=== PATIENT | female | born 1985 | race Caucasian/White ===

== ENCOUNTER 2016-06-03 05:08 | Inpatient (IN) | payer BC, OTHER ==
[~2016-06-03] VITALS: Ht 165.1 cm; Wt 68.2 kg
[~2016-06-03 05:08] MED LIST: PRENTAB26 PO
[2016-06-03 05:33] VITALS: Ht 165.1 cm; Wt 68.2 kg
[2016-06-03] MEDS ORDERED: LACTATED RINGER'S 1000ML 1,000 ML IV SCH (06:01)
[2016-06-03] MEDS ORDERED: LACTATED RINGER'S 1000ML 1,000 ML IV PRN (06:01)
[2016-06-03 06:31] LABS: HEMATOCRIT 36.7 % (37-47); MEAN CELL VOLUME 88.2 fL (80-100); MEAN CORPUSCULAR HEMOGLOBIN 29.8 pg (25-34); MEAN CORPUSCULAR HGB CONC 33.8 g/dl (32-36); MEAN PLATELET VOLUME 10.2 fL (7.4-10.4); PLATELET COUNT 212 K/uL (130-400); RED BLOOD COUNT 4.16 M/uL (4.2-5.4)
[2016-06-03] MEDS ORDERED: OXYTOCIN 30 UNITS/500ML NSS IV ONE (07:41)
[2016-06-03] MEDS ORDERED: NURSING VERBAL MED ORDER ONE (08:15)
[2016-06-03] MEDS ORDERED: CLINDAMYCIN IV 600 MG in DEXTROSE 5% ADD-VANTAGE 50ML 50 ML IV SCH (08:30)
[2016-06-03] MEDS ORDERED: LANOLIN OINT EXT PRN ×2 (09:00)
[2016-06-03] MEDS ORDERED: SUPERCREAM 0.870 % 15GM JAR EXT PRN (09:00)
[2016-06-03] MEDS ORDERED: ACETAMINOPHEN 325 MG TAB PO PRN (09:00)
[2016-06-03] MEDS ORDERED: OXYCODONE/ACETAMINOPHEN 5-325 TAB PO PRN (09:00)
[2016-06-03] MEDS ORDERED: OXYTOCIN 30 UNITS/500ML NSS IV PRN (09:00)
[2016-06-03] MEDS ORDERED: HYDROCORTISONE ACETATE 25 MG SUPP PR PRN (09:00)
[2016-06-03] MEDS ORDERED: BENZOCAINE 20% AER SPR 82.5 GM CAN EXT PRN (09:00)
--- NOTE | 2016-06-03 09:17 | DELIVERY SUMMARY ---
DATE OF OPERATION: 06/03/2016 TIME OF DELIVERY OF BABY: 0758. TIME OF DELIVERY OF PLACENTA: 08. DETAILS OF DELIVERY: The patient was found to be fully dilated and desired to push. She pushed for about 10 minutes and delivered the head without difficulty. Shoulders were delivered with minimum traction. Baby was handed off to the mother where mouth and nose were suctioned. Cord was clamped x2 and cut, it was a 3-vessel cord, and then cord blood was obtained. Perineum and vagina were checked for lacerations. There was a perineal laceration in the posterior fourchette and rectal exam was done and confirmed to be a third degree. Good sphincter tone was noted. The gloves were changed. then external fibers of the sphincter were held with Allis clamps and then these fibers were reapproximated with 2-0 Vicryl with [id number] stitch in end-to-end fashion. Then rectal exam was repeated and no sutures were felt and good sphincter tone noted. Gloves were changed. Vaginal mucosa and perineal muscles were reapproximated with a different 2-0 Vicryl in a running locked fashion, skin in a subcuticular fashion. Good hemostasis was achieved. The rest of the vagina and perineum were intact. Then, placenta was found to be in the vagina, delivered spontaneously, intact and complete. Uterus was explored, found to be empty. Lower segment cleared off all clots and debris. Fundus was firm. EBL was 300. Baby and mother tolerated the procedure well. Sponge, lap, needle and instrument counts were correct x2. Baby was a viable female . Apgars were 9/9. Weight is pending. The patient was given 600 mg of clindamycin during third-degree repair. No complications happened and I was present during the whole procedure. I attest to the content of the Intraoperative Record and any orders documented therein. Any exceptions are noted below. MTDD
[2016-06-03] MEDS: IBUPROFEN 600 MG TAB PO PRN ×2 (09:55→18:21)
[2016-06-03 11:50] VITALS: BP 130/87; PULSE 103; TEMP 36.7
[2016-06-03 15:15] VITALS: BP 102/60; PULSE 56; TEMP 36.8
[2016-06-03] MEDS: DOCUSATE SODIUM 100 MG CAP PO SCH (19:35)
[2016-06-03 20:01] VITALS: BP 115/74; PULSE 88; TEMP 36.7
[2016-06-04 00:10] VITALS: BP 117/76; PULSE 90; TEMP 36.9; O2SAT 97
[2016-06-04 04:30] VITALS: BP 103/66; PULSE 97; TEMP 37; O2SAT 99
[2016-06-04] MEDS: DOCUSATE SODIUM 100 MG CAP PO SCH (07:29)
[2016-06-04 07:30] VITALS: BP 107/72; PULSE 80; TEMP 37
[2016-06-04] MEDS: IBUPROFEN 600 MG TAB PO PRN ×2 (07:30→15:29)
[2016-06-04] MEDS ORDERED: FERROUS SULFATE 325 MG TAB PO SCH (08:00)
[2016-06-04] MEDS ORDERED: PRENATAL VITAMIN TAB PO SCH (08:00)
--- NOTE | 2016-06-04 08:44 | OB/GYN Progress Note ---
[facility] Progress Note Date of Service Jun 04, 2016. Subjective conversation w/ patient, physical exam Ambulation: ambulating normally Voiding: no voiding problems Passing Gas: Yes Diet Tolerance: Regular Diet Lochia: Moderate Feeding Type: Breast Feeding Review of Systems Constitutional: No chills, No fatigue, No fever, No problem reported, No sweats , No weakness, No weight loss Respiratory: No cough, No dyspnea at rest, No dyspnea on exertion, No hemoptysis, No problem reported, No shortness of breath, No sputum, No wheezing Cardiac: No PND, No chest pain, No claudication, No edema, No orthopnea, No palpitations, No problem reported Breast: No breast lump, No breast pain, No change in shape, No nipple discharge , No problem reported, No see HPI Abdomen: No GI bleeding, No constipation, No diarrhea, No nausea, No pain, No problem reported, No vomiting Female : No abnormal vaginal bleeding, No dysuria, No hematuria, No incontinence, No problem reported, No see HPI, No urinary frequency, No vaginal discharge Vd Day #1 pt doing well no complaints anticipate disch tomorrow paperwork done for disch tomorrow Objective Vital Signs Date Time Temp Pulse Resp B/P Pulse Ox O2 Delivery O2 Flow Rate FiO2 06/04/16 07:30 37.0 80 20 107/72 Room Air 06/04/16 07:20 Room Air 06/04/16 04:30 37.0 97 18 103/66 99 Room Air 06/04/16 00:10 97 Room Air 06/04/16 00:10 36.9 90 18 117/76 97 Room Air 06/03/16 20:01 36.7 88 18 115/74 Room Air 06/03/16 15:15 36.8 56 16 102/60 Room Air 06/03/16 15:15 Room Air 06/03/16 11:50 36.7 103 18 130/87 Room Air 06/03/16 11:50 Room Air Laboratory Results Last 24 Hours Test 06/04/16 05:57 Hemoglobin 10.6 g/dL Hematocrit 32.0 %
[2016-06-04] MEDS ORDERED: MTR600X PO (08:45)
--- NOTE | 2016-06-04 08:46 | Discharge Instructions ---
Discharge Instructions Admission Reason for Admission: LABOR Discharge Discharge Diagnosis / Problem: Discharge Goals Goal(s): Routine recovery after delivery Activity Recommendations Activity Limitations: as noted below Lifting Limitations: gradually increase as tolerated Exercise/Sports Limitations: until after follow-up appointment May Resume Sexual Activity: after follow-up appointment Driving or Machine Use: ACTIVITY RECOMMENDATIONS: * Gradual return to full activity over the next 2-3 weeks. * No lifting - nothing heavier than baby over the next 2-3 weeks. * Do not engage in vigorous exercise, sexual activity or sports until cleared by your physician. * Do not drive or operate any motorized equipment until cleared by your physician. * You may shower/bathe daily. BREAST CARE: If you are not breast feeding: * Wear a supportive bra 24 hours a day for one to two weeks. * Avoid stimulating your breasts and nipples as much as possible during the first few weeks after delivery. * When taking a shower, have the warm water hit your back, not breasts. * When your breasts feel full, apply ice packs. Usually three to four times a day helps ease the discomfort. * Take a mild pain medication (Tylenol/Motrin) when you are uncomfortable. If breast feeding: * Use breast milk to lubricate nipples. Lansinoh cream may be used for sore nipples. You do not need to remove cream prior to breast feeding. If using a different brand of cream, check the label for directions regarding removal of cream prior to nursing. * Wear a supportive bra. * If having problems with breasts or breast feeding, call a exchange underwriting consultant or your health care provider. EPISIOTOMY CARE: After delivery, if you have an episiotomy (stitches), the following steps will ease discomfort and aid healing. * For the first 24 hours after delivery, place ice packs next to your episiotomy to help reduce swelling. * After the first 24 hour-period, sitz baths, either portable or in the tub, are suggested. A shower with a shower arm sprayed over the episiotomy may be comforting. * Ingrid care should be done after each voiding and bowel movement. Squirt warm water from a plastic bottle over the perineum (region of the body between the anus and urinary opening) and pat dry. * Use Dermoplast to ease discomfort. Shake container. [place] directly over the episiotomy. * Place a Tucks on a clean sanitary pad next to your episiotomy. OVER THE COUNTER MEDICATION: * For discomfort or pain, you may use Acetaminophen (Tylenol), Ibuprofen (Advil ), or Naproxen (Aleve) following the package directions. * For constipation you may use Colace following the package directions. SPECIAL CARE INSTRUCTIONS: When you are discharged from the hospital, it is important for you to follow the instructions listed below: * During the first week at home, you should be able to care for yourself and your baby. In addition, the usual light household activities are encouraged. * Limit your activities to the way you feel. Do not try to clean the house or move furniture. Be sensible. * If you actively engage in sports and have done so up until the time of your delivery, you may resume these activities as soon as you feel able. This may take up to one month or even longer. Use good judgment. * Continue to take your vitamins for at least six weeks after the of your baby. * Your diet need not be limited unless you were on a special diet before your delivery. Breast-feeding mothers need around 2500 calories per day and at least 64-80 ounces of fluid per day (8 to 10 glasses). * You should eat foods from the four major food groups. Crash diets or fad diets are to be avoided. Eating lean meats, fresh fruits and vegetables, low-fat dairy products, high fiber foods and a regular exercise program, will help you get back to your pre- weight without putting your health at risk. * Constipation is sometimes a problem after delivery. Take a mild laxative as needed. If breast feeding, Milk of Magnesia is acceptable to use. You may use a suppository or Fleets enema if no episiotomy. * A daily shower or tub bath is suggested. Be sure to thoroughly and gently dry the perineum. * A bloody vaginal discharge will usually continue until around four weeks post . A small amount of bleeding may continue for as long as six weeks. Vaginal discharge changes from the bright red bleeding after delivery to pink then brownish and finally yellowish-pink before becoming white and disappearing. * Bleeding may increase with activity. Your first period may come in 4-8 weeks. If you are breast feeding, your period may be delayed even longer. * Vancleave (sex) can begin whenever both you and your partner feel comfortable and do not have any form of genital infection. It is recommended that you wait until after your return appointment and discuss with your physician. If you have questions, please talk to your health care practitioner. A condom should be used to prevent infection and . * Foreplay, gentle intercourse and lubrication is very important the first several times to prevent pain. A water-based lubricant such as K-Y jelly or Astroglide may be used. * Tampons may be used six weeks after delivery. * Douching should be avoided for 6 weeks after delivery. * If you have RH negative blood and your baby is RH positive, you will receive RHOGAM by injection prior to discharge. The nurse will give you a card to keep with you that has the date and place that you received RHOGAM after delivery. * During your care, you had a Rubella screen done to check for the presence of rubella antibodies in your blood. If your test was negative, you will receive a Rubella vaccine prior to discharge. This vaccine may cause a fever, soreness at the injection site and flu-like symptoms. If these symptoms persist, notify your health care practitioner. is not advised for three months after a Rubella vaccine. There is a higher chance of having a baby with defects if conceived within three months of getting the vaccine. * If you were discharged 24 hours from delivery or before 48 hours: Visiting nurses will come to your home 48 hours after discharge to assess you and your baby. The visiting nurse will meet with you while you are in the hospital to arrange a time and get directions to your home. * Verbalizes understanding of car seat law as reviewed with patient nursing. * Car Seat hand-out given and reviewed with patient by nursing. * Shaken baby information reviewed with patient by nursing. Call you doctor if: * Heavy bleeding (saturating several pads an hour) or passing clots the size of your fist. * A fever >101 degrees F (38.3 degrees C) on two occasions four hours apart and/or chills. * Unusual pain in the pelvic or vaginal areas. * "Baby Blues" lasting longer than two weeks. If you have any questions or concerns, call your health care practitioner at . FOLLOW-UP VISIT: * Please call the office at to schedule a 6 week examination. It is important you keep this appointment. * It is important for you to make arrangements for either yearly or twice yearly check-ups thereafter. . Current Hospital Diet Patient's current hospital diet: Regular OB Diet Discharge Diet Recommended Diet: Regular Diet Pending Studies Studies pending at discharge: no Medical Emergencies . Who to Call and When: Medical Emergencies: If at any time you feel your situation is an emergency, please call 911 immediately. . Non-Emergent Contact Non-Emergency issues call your: Specialist Call Non-Emergent contact if: you have a fever, your pain is not controlled, wound has increased drainage . . "Provider Documentation" section prepared by Isidro Hernandez. VTE Core Measure Inpt VTE Proph given/why not?: Treatment not indicated
[2016-06-04] MEDS ORDERED: DIPHTHERIA/TETANUS/PERTUSSIS 0.5 ML SYR/VIAL IM. ONE (09:00)
[2016-06-04] MEDS ORDERED: MEASLES, MUMPS & RUBELLA VIRUS VIAL SQ. ONE (09:00)
[2016-06-04 15:15] VITALS: BP 118/81; PULSE 84; TEMP 36.9
[2016-06-04 15:45] VITALS: O2SAT 99
[2016-06-04 19:32] VITALS: BP_DIAS 81; PULSE 84; TEMP 36.9
[2016-06-04] MEDS ORDERED: BISACODYL 5 MG TABEC PO SCH (20:00)
[2016-06-05] MEDS ORDERED: BISACODYL 10 MG SUPP PR PRN (07:00)
== END 2016-06-04 19:32 | disposition home or self-care (01) | DRG 775 ==
LOC: C.OPB 05:08 → C.LD 05:08 → C.OPB 06:03 → C.OBG 11:47
PROVIDERS: ADMIT Obstetrics & Gynecology; ATTEND Obstetrics & Gynecology
PROC: 10E0XZZ Delivery of Products of Conception, External Approach (ICD-10-PCS; principal; 2016-06-03)
PROC: 0KQM3ZZ Repair Perineum Muscle, Percutaneous Approach (ICD-10-PCS; principal; 2016-06-03)
DX: O70.20 Third degree perineal laceration during delivery, unspecified (principal); Z3A.39 39 weeks gestation of pregnancy; Z37.0 Single live birth

== ENCOUNTER 2016-09-13 22:23 | Emergency (ER) | payer BC, OTHER ==
[~2016-09-13] VITALS: Ht 165.1 cm; Wt 58.9 kg
[~2016-09-13 22:23] MED LIST changes: +MTR600X PO
[2016-09-13 22:30] VITALS: TEMP 36.6; Ht 165.1 cm; Wt 58.9 kg
[2016-09-13] MEDS ORDERED: SODIUM CHLORIDE 0.9% 1000ML 1,000 ML IV STA (23:15)
[2016-09-13 23:49] LABS: HEMATOCRIT 41.1 % (37-47); MEAN CELL VOLUME 86.9 fL (80-100); MEAN CORPUSCULAR HGB CONC 33.3 g/dl (32-36); MEAN PLATELET VOLUME 9.6 fL (7.4-10.4); PLATELET COUNT 229 K/uL (130-400); RED BLOOD COUNT 4.73 M/uL (4.2-5.4); WHITE BLOOD COUNT 6.13 K/uL (4.8-10.8)
[2016-09-13 23:53] LABS: URINE APPEARANCE CLEAR (CLEAR); URINE BILIRUBIN NEG (NEG); URINE COLOR YELLOW; URINE EPITHELIAL CELL AUTO 20-30 /lpf (0-5); URINE NITRITE NEG (NEG); URINE PH 6.5 (4.5-7.5); URINE SPECIFIC GRAVITY 1.007 (1.000-1.030); UROBILINOGEN NEG (NEG)
[2016-09-14 00:06] LABS: MANUAL MICROSCOPIC REQUIRED? NO; REVIEW REQ? NO
[2016-09-14 00:11] LABS: BASO % 0.5 %; BASO ABS # 0.03 K/uL (0-0.2); COMPLETE YES; EOS % 5.1 %; IG% 0.2 %; LYMPH % 52.4 %; LYMPH ABS # 3.21 K/uL (1.2-3.4); MONO % 8.2 %; NEUT % 33.6 %
[2016-09-14 00:12] LABS: ALT/SGPT 35 U/L (12-78); AST/SGOT 19 U/L (15-37); BLOOD UREA NITROGEN 17 mg/dl (7-18); CALCIUM 8.9 mg/dl (8.5-10.1); CARBON DIOXIDE 30 mmol/L (21-32); CHLORIDE 107 mmol/L (98-107); CREATININE 0.78 mg/dl (0.60-1.20); GLUCOSE 94 mg/dl (70-99); POTASSIUM 3.7 mmol/L (3.5-5.1); SODIUM 143 mmol/L (136-145)
[2016-09-14 00:14] LABS: ALKALINE PHOSPHATASE 122 U/L (45-117)
[2016-09-14 00:17] LABS: PREG INTERNAL NEGATIVE QC NEG CLEAR BACKGROUND; PREG INTERNAL POSITIVE QC POS CONTROL LINE
[2016-09-14] MEDS ORDERED: MULT-506 PO (01:48)
--- NOTE | 2016-09-14 02:11 | EMERGENCY ROOM VISIT NOTE ---
ED Visit Note First contact with patient: 23:05 Chief Complaint: Abdominal pain. History of Present Illness: Ms. Saunders is a 30 year-old white female who ambulates into the ED accompanied by her baby child complaining of lower abdominal pain, pain with urination, lower back pain with urination, fatigue and intermittent nausea. Historically patient reports she is 4 para 2 and 3 months. Patient reports a gradual onset of lower abdominal pain that started approximately one month ago. Since that time her pain has been constant but waxing and waning in intensity. This was associated with a full urination, lower back pain. She describes her abdominal pain as a crampy sensation in her back pain as an achy sensation. She rates her current discomfort 3/10. Her pain worsens with urination. She has not identified any other aggravating factors. She has been intermittently using Tylenol with mild relief of her discomfort. Associated she has noted urinary burning and increased urinary frequency. Additionally she reports that she has been having intermittent sensations of chills and nausea but has not had no laya fevers or vomiting. Additionally she does report that when her discomfort escalates she does get lightheaded but has not had a syncopal episode. She does report approximately one week ago she was seen by her [facility] physician who did a pelvic examination and reported everything as "normal", but encouraged the patient to call back in a week's time if the symptoms have not resolved for possible ultrasound of her pelvis and kidneys. Additionally she reports she has been feeling fatigued but does report she has been taking care of 3 children. Patient denies fevers, chills, sweats, skin eruptions, skin color changes, upper respiratory tract symptoms, shortness of breath, chest pain, diarrhea, constipation, rectal bleeding, black/tarry stools, hematuria, vaginal bleeding, vaginal discharge. Review of Systems: As noted above in history of present illness. All body systems were reviewed and found to be negative as noted above. Past Medical History: Ovarian cyst rupture, unspecified bony fracture and unspecified skin disorder. Current Medications: Ibuprofen, vitamins. Allergies to Medications: Bactrim. Social History: Patient is not employed; she feels safe in her home environment ; she denies tobacco and alcohol use. Physical Examination: Vital Signs: Date Time Temp Pulse Resp B/P Pulse Ox O2 Delivery O2 Flow Rate FiO2 09/13/16 22:30 36.6 73 19 125/84 99 GENERAL: 30-year-old female in mild distress due to pain, nontoxic-appearing, afebrile and hemodynamically stable. NEUROLOGICAL: Awake, alert and oriented to person, place and time. Answering questions appropriately and following commands. Normal gait. Good hand eye coordination. SKIN: Warm, dry and pink. No soft tissue eruptions or trauma noted. HEENT: Atraumatic and normocephalic. PERRLA. Sclera white and conjunctiva pink. Oral cavity moist and pink. Pharynx is nonerythematous or edematous. Speech normal. No lymphadenopathy. Trachea midline. No jugular venous distention. BACK: No tenderness over the bony spine. No tenderness throughout the paraspinous muscles. Full range of motion at the waist. No CVA tenderness. THORAX: Lungs sounds are clear to auscultation and equal bilaterally with symmetrical chest wall. No wheezing, rales or rhonchi. No crepitus, tenderness , subcutaneous air or deformities noted. HEART: Regular rate and rhythm. No gallops, rubs or murmurs are appreciated. ABDOMEN: Flat and soft with mild tenderness throughout the lower abdomen. Positive bowel sounds in all quadrants. No guarding, rigidity or organomegaly. EXTREMITIES: Moves all extremities well on command and with purpose. All distal neurovascular statuses are intact and equal bilaterally. ED Course: Patient is assessed as noted above. Laboratory Testing: Test 09/13/16 22:40 09/13/16 23:40 Range/Units Urine Color YELLOW Urine Appearance CLEAR CLEAR Urine pH 6.5 4.5-7.5 Urine Specific [place] 1.007 1.000-1.030 Urine Protein NEG NEG Urine Glucose (UA) NEG NEG Urine Ketones NEG NEG Urine Occult Blood NEG NEG Urine Nitrite NEG NEG Urine Bilirubin NEG NEG Urine Urobilinogen NEG NEG Urine Leukocyte Esterase TRACE NEG Urine WBC (Auto) 1-5 0-5 /hpf Urine RBC (Auto) 0-4 0-4 /hpf Urine Hyaline Casts (Auto) 0 0-5 /lpf Urine Epithelial Cells (Auto) 20-30 0-5 /lpf Urine Bacteria (Auto) NEG NEG White Blood Count 6.13 4.8-10.8 K/uL Red Blood Count 4.73 4.2-5.4 M/uL Hemoglobin 13.7 12.0-16.0 g/dL Hematocrit 41.1 37-47 % Mean Corpuscular Volume 86.9 80-100 fL Mean Corpuscular Hemoglobin 29.0 25-34 pg Mean Corpuscular Hemoglobin Concent 33.3 32-36 g/dl Platelet Count 229 130-400 K/uL Mean Platelet Volume 9.6 7.4-10.4 fL Neutrophils (%) (Auto) 33.6 % Lymphocytes (%) (Auto) 52.4 % Monocytes (%) (Auto) 8.2 % Eosinophils (%) (Auto) 5.1 % Basophils (%) (Auto) 0.5 % Neutrophils # (Auto) 2.07 1.4-6.5 K/uL Lymphocytes # (Auto) 3.21 1.2-3.4 K/uL Monocytes # (Auto) 0.50 0.11-0.59 K/uL Eosinophils # (Auto) 0.31 0-0.5 K/uL Basophils # (Auto) 0.03 0-0.2 K/uL RDW Standard Deviation 43.3 36.4-46.3 fL RDW Coefficient of Variation 13.6 11.5-14.5 % Immature Granulocyte % (Auto) 0.2 % Immature Granulocyte # (Auto) 0.01 0.00-0.02 K/uL Red Blood Cell Morphology Unremarkable Sodium Level 143 136-145 mmol/L Potassium Level 3.7 3.5-5.1 mmol/L Chloride Level 107 98-107 mmol/L Carbon Dioxide Level 30 21-32 mmol/L Anion Gap 6.0 3-11 mmol/L Blood Urea Nitrogen 17 7-18 mg/dl Creatinine 0.78 0.60-1.20 mg/dl Est Creatinine Clear Calc Drug Dose 95.8 ml/min Estimated GFR () 119.1 Estimated GFR (Non- 102.7 BUN/Creatinine Ratio 22.0 10-20 Random Glucose 94 70-99 mg/dl Calcium Level 8.9 8.5-10.1 mg/dl Total Bilirubin 0.2 0.2-1 mg/dl Direct Bilirubin < 0.1 0-0.2 mg/dl Aspartate Amino Transf (AST/SGOT) 19 15-37 U/L Alanine Aminotransferase (ALT/SGPT) 35 12-78 U/L Alkaline Phosphatase 122 45-117 U/L Total Protein 8.2 6.4-8.2 gm/dl Albumin 3.9 3.4-5.0 gm/dl Lipase 215 73-393 U/L Human Chorionic Gonadotropin, Qual NEG NEG Pelvic Ultrasound: Was reviewed by myself and read by the radiologist and showing no endometrial thickening, normal ovarian follicles, suspected nabothian cyst, blood flow seen to the bilateral ovaries, nonspecific focus of increased echogenicity with some increased vascularity in the right ovary less than 1 cm in size and a small amount of pelvic fluid. Renal Ultrasound: Was reviewed by myself and read by the radiologist showing suspected mild right hydronephrosis with ectatic appearing collection system and renal pelvis. Bilateral urethral jets. Normal appearing left kidney. Accidental imaging of the liver shows that it is generous in size measuring approximately 18.6 cm. Patient was hydrated with normal saline; patient was offered pain medications and refused. Patient was reassessed multiple times during her stay in the emergency department. Patient's case was reviewed with Dr. Esteves; we agreed on diagnostic approach, treatment, disposition and plan. Patient was educated about tonight's findings and instructed on her treatment plan; she verbalized understanding and agreement with this plan. Clinical Impression: Pelvic pain. Lower back pain. ENT. Mild hydronephrosis. Decision-Making: Initially my differential diagnosis I considered pelvic inflammatory disease, pyelonephritis, musculoskeletal disorder, dehydration, and other causes. Disposition: Patient discharged home in stable condition accompanied by her ; prior to departure she was reassessed and subjectively reported she was feeling the same. Plan: Patient was encouraged to use acetaminophen as needed for pain every 6 hours. Patient was encouraged to stay well-hydrated. Patient was encouraged to follow-up with her [employer] physician. Patient was encouraged return the ED for worsening symptoms, fevers, or any new/ concerning symptoms.
[2016-09-14 02:15] VITALS: BP 119/87; PULSE 73; O2SAT 98
--- NOTE | 2016-09-14 06:45 | DIAGNOSTIC IMAGING REPORT ---
EXAMINATION: PELVIC ULTRASOUND (transabdominal and endovaginal scanning) CLINICAL HISTORY: Pelvic pain, nausea, vomiting, diarrhea. COMPARISON STUDY: October 2007 FINDINGS: The uterus measured 7.7 x 3 x 5 cm.. The endometrial stripe measured 3 mm. The right ovary measured 34 x 17 x 17 mm. The left ovary measured 32 x 15 x 19 mm. There is no ultrasonographic evidence of ovarian torsion. It should be noted that ovarian torsion can be present with normal Doppler ultrasonographic findings. There is trace free fluid, likely physiologic. IMPRESSION: Minimal free fluid likely physiologic. Otherwise unremarkable pelvic ultrasound. Electronically signed by: Milan Mendes M.D. 09/14/2016 6:43 AM Dictated Date/Time: 09/14/2016 6:41 AM
--- NOTE | 2016-09-14 07:46 | DIAGNOSTIC IMAGING REPORT ---
RENAL ULTRASOUND HISTORY: pelvic, back pain, pain with urination COMPARISON: None. FINDINGS: Right kidney: 11.1 . Mild fullness within the right renal collecting system without laya hydronephrosis. Normal corticomedullary differentiation and cortical thickness. Left kidney: 11.2 No hydronephrosis. Normal corticomedullary differentiation and cortical thickness. Bladder: No bladder wall thickening. The bilateral ureteral jets were identified. Liver is borderline enlarged measuring 18.6 cm in length. IMPRESSION: 1. Mild fullness within the right renal collecting system without laya hydronephrosis. 2. Normal left kidney. Electronically signed by: César Mendes M.D. 09/14/2016 7:44 AM Dictated Date/Time: 09/14/2016 7:41 AM
== END 2016-09-14 02:16 | disposition home or self-care (01) ==
LOC: C.EDB 22:24
DX: R10.2 Pelvic and perineal pain (principal); M54.5 Low back pain; N13.30 Unspecified hydronephrosis

== ENCOUNTER 2017-06-23 12:20 | Emergency (ER) | payer BC, OTHER ==
[~2017-06-23] VITALS: Ht 165.1 cm; Wt 59.8 kg
[~2017-06-23 12:20] MED LIST changes: -MTR600X PO; +MULT-506 PO; -PRENTAB26 PO
[2017-06-23 12:25] VITALS: TEMP 36.5; Ht 165.1 cm; Wt 59.8 kg
--- NOTE | 2017-06-23 13:23 | EMERGENCY ROOM VISIT NOTE ---
History First contact with patient: 13:02 Chief Complaint: ABDOMINAL PAIN Stated Complaint: RIGHT LOWER ABD PAIN/BACK PAIN Nursing Triage Summary: having frequent urination. lower back pain some pelvic pain. went to urgent care no uti not . symptoms have been getting worse for the past week. History of Present Illness The patient is a 31 year old female who presents to the Emergency Room with complaints of lower abdominal pain radiating to her back has been fairly constant for the last week. She describes it as a dull, achy sensation. She has also had urinary frequency. She denies any dysuria, fever or chills. No nausea or vomiting. Bowel movements have been regular. The patient was first seen at urgent care, and sent here for further evaluation. A test and a urinalysis were performed. No abnormalities were noted. She denies any vaginal discharge. She is sexually active with one partner. Review of Systems 10 system review performed and negative unless noted in HPI or below Past Medical/Surgical History Medical Problems: (1) Amniotic fluid leaking Family History Gallbladder disease Social History Smoking Status: Never Smoker Marital Status: Housing Status: lives with family Occupation Status: employed Current/Historical Medications Scheduled Multivitamin (Multivitamin), 1 TAB PO DAILY Physical Exam Vital Signs Date Time Temp Pulse Resp B/P (MAP) Pulse Ox O2 Delivery O2 Flow Rate FiO2 06/23/17 16:19 83 18 110/62 100 06/23/17 14:18 67 18 101/70 100 Room Air 06/23/17 12:25 36.5 64 18 106/78 100 Room Air Physical Exam VITALS: Vitals are noted on the nurse's note and reviewed by myself. Vital signs stable. GENERAL: 31-year-old female, in no acute distress, nondiaphoretic, well- developed well-nourished. SKIN: The skin was without rashes, erythema, edema, or bruising. HEAD: Normocephalic atraumatic. MOUTH: Mucous membranes moist. NECK: Supple without nuchal rigidity. No JVD. HEART: Regular rate and rhythm without murmurs gallops or rubs. LUNGS: Clear to auscultation bilaterally without wheezes, rales or rhonchi. No accessory muscle use. ABDOMEN: Positive bowel sounds x 4.Soft, tenderness to palpation particularly in the right lower quadrant. Slight right-sided CVA tenderness noted. No guarding or rebound tenderness. MUSCULOSKELETAL: No muscle atrophy, erythema, or edema noted. Strength 5/5 throughout. NEURO: Patient was alert and oriented to person place and time. Normal sensation to touch. No focal neurological deficits. Medical Decision & Procedures ER Provider Diagnostic Interpretation: Renal US Patient Name: DELMI PATINO Unit Number: [id number] Dictated: 06/23/171515 Transcribed: 06/23/171515 JRB Printed Date/Time: [~ rep prt dt]/[~ rep prt tm] [~ rep ct labl] - [~ rep ct ivnm] [facility] [place] [address] Dictated: 06/23/171515 Transcribed: 06/23/171515 JRB Printed Date/Time: [~ rep prt dt]/[~ rep prt tm] [~ rep ct labl] - [~ rep ct ivnm] IMPRESSION: 1. Hyperechoic focus within the fundal endometrium measures up to 1.2 cm and may demonstrate minimal internal vascularity. This could be correlated with hysteroscopy to exclude endometrial mass lesion. 2. Mildly complex cystic structure of the right ovary measuring up to 2.7 cm suggests involuting hemorrhagic cyst or less likely a small endometrioma. 3. Mild free pelvic fluid, likely reactive. 4. No evidence of ovarian torsion. The above report was generated using voice recognition software. It may contain grammatical, syntax or spelling errors. Electronically signed by: Randell Lucas M.D. 06/23/2017 3:21 PM Dictated Date/Time: 06/23/2017 3:16 PM The status of this report is Signed. Draft = Not yet reviewed or approved by Radiologist. Signed = Reviewed and approved by Radiologist. <AttendingPhy></AttendingPhy> <FamilyPhy>No Doctor, Assigned</FamilyPhy> < PrimaryPhy>No Doctor, Assigned</PrimaryPhy> <UnitNumber>[id number]</UnitNumber> <VisitNumber>[id number]</VisitNumber> <PatientName>DELMI PATINO</PatientName > <DateOfBirth>1985</DateOfBirth> <Location>[facility]</Location> <ServiceDate> 06/23/17</ServiceDate> <MNE>ESINDI</MNE> <OrderingPhy>Amber Reyna PA-C</ OrderingPhy> <OrderingPhyMNE>f rep ord dr toledo</OrderingPhyMNE> <DictatingPhyMNE> f rep dict dr toledo</DictatingPhyMNE> <CCListMNE>f rep ct mne</CCListMNE> < AdmittingPhyMNE>f pt admit dr toledo</AdmittingPhyMNE> <AttendingPhyMNE>f pt attend dr toledo</AttendingPhyMNE> <ConsultingPhyMNE>f pt consult dr toledo</ConsultingPhyMNE> <FamilyPhyMNE>f pt fam dr toledo</FamilyPhyMNE> <OtherPhyMNE>f pt other dr toledo</OtherPhyMNE> < PrimaryPhyMNE>f pt prim care dr toledo</PrimaryPhyMNE> <ReferringPhyMNE>f pt referring dr toledo</ReferringPhyMNE> Pelvic US Patient Name: DELMI PATINO Unit Number: [id number] Dictated: 06/23/171515 Transcribed: 06/23/171515 JRB Printed Date/Time: [~ rep prt dt]/[~ rep prt tm] [~ rep ct labl] - [~ rep ct ivnm] [facility] [place] [address] Dictated: 06/23/171515 Transcribed: 06/23/171515 JRB Printed Date/Time: [~ rep prt dt]/[~ rep prt tm] [~ rep ct labl] - [~ rep ct ivnm] IMPRESSION: 1. Hyperechoic focus within the fundal endometrium measures up to 1.2 cm and may demonstrate minimal internal vascularity. This could be correlated with hysteroscopy to exclude endometrial mass lesion. 2. Mildly complex cystic structure of the right ovary measuring up to 2.7 cm suggests involuting hemorrhagic cyst or less likely a small endometrioma. 3. Mild free pelvic fluid, likely reactive. 4. No evidence of ovarian torsion. The above report was generated using voice recognition software. It may contain grammatical, syntax or spelling errors. Electronically signed by: Randell Lucas M.D. 06/23/2017 3:21 PM Dictated Date/Time: 06/23/2017 3:16 PM The status of this report is Signed. Draft = Not yet reviewed or approved by Radiologist. Signed = Reviewed and approved by Radiologist. <AttendingPhy></AttendingPhy> <FamilyPhy>No Doctor, Assigned</FamilyPhy> < PrimaryPhy>No Doctor, Assigned</PrimaryPhy> <UnitNumber>[id number]</UnitNumber> <VisitNumber>[id number]</VisitNumber> <PatientName>DELMI PATINO</PatientName > <DateOfBirth>1985</DateOfBirth> <Location>[facility]</Location> <ServiceDate> 06/23/17</ServiceDate> <MNE>ESINDI</MNE> <OrderingPhy>Amber Reyna PA-C</ OrderingPhy> <OrderingPhyMNE>f rep ord dr toledo</OrderingPhyMNE> <DictatingPhyMNE> f rep dict dr toledo</DictatingPhyMNE> <CCListMNE>f rep ct mne</CCListMNE> < AdmittingPhyMNE>f pt admit dr toledo</AdmittingPhyMNE> <AttendingPhyMNE>f pt attend dr toledo</AttendingPhyMNE> <ConsultingPhyMNE>f pt consult dr toledo</ConsultingPhyMNE> <FamilyPhyMNE>f pt fam dr toledo</FamilyPhyMNE> <OtherPhyMNE>f pt other dr toledo</OtherPhyMNE> < PrimaryPhyMNE>f pt prim care dr toledo</PrimaryPhyMNE> <ReferringPhyMNE>f pt referring dr toledo</ReferringPhyMNE> Laboratory Results 06/23/17 12:40 Red Blood Count 4.77, Mean Corpuscular Volume 90.4, Mean Corpuscular Hemoglobin 30.4, Mean Corpuscular Hemoglobin Concent 33.6, Mean Platelet Volume 10.0, Neutrophils (%) (Auto) 43.1, Lymphocytes (%) (Auto) 40.9, Monocytes (%) (Auto) 11.1, Eosinophils (%) (Auto) 4.4, Basophils (%) (Auto) 0.4, Neutrophils # (Auto ) 2.91, Lymphocytes # (Auto) 2.77, Monocytes # (Auto) 0.75, Eosinophils # (Auto ) 0.30, Basophils # (Auto) 0.03 06/23/17 12:40 Test 06/23/17 12:40 06/23/17 12:58 White Blood Count 6.77 K/uL (4.8-10.8) Red Blood Count 4.77 M/uL (4.2-5.4) Hemoglobin 14.5 g/dL (12.0-16.0) Hematocrit 43.1 % (37-47) Mean Corpuscular Volume 90.4 fL (80-100) Mean Corpuscular Hemoglobin 30.4 pg (25-34) Mean Corpuscular Hemoglobin Concent 33.6 g/dl (32-36) Platelet Count 245 K/uL (130-400) Mean Platelet Volume 10.0 fL (7.4-10.4) Neutrophils (%) (Auto) 43.1 % Lymphocytes (%) (Auto) 40.9 % Monocytes (%) (Auto) 11.1 % Eosinophils (%) (Auto) 4.4 % Basophils (%) (Auto) 0.4 % Neutrophils # (Auto) 2.91 K/uL (1.4-6.5) Lymphocytes # (Auto) 2.77 K/uL (1.2-3.4) Monocytes # (Auto) 0.75 K/uL (0.11-0.59) Eosinophils # (Auto) 0.30 K/uL (0-0.5) Basophils # (Auto) 0.03 K/uL (0-0.2) RDW Standard Deviation 42.5 fL (36.4-46.3) RDW Coefficient of Variation 12.9 % (11.5-14.5) Immature Granulocyte % (Auto) 0.1 % Immature Granulocyte # (Auto) 0.01 K/uL (0.00-0.02) Anion Gap 4.0 mmol/L (3-11) Est Creatinine Clear Calc Drug Dose 115.7 ml/min Estimated GFR () 138.8 Estimated GFR (Non- 119.7 BUN/Creatinine Ratio 17.7 (10-20) Calcium Level 8.9 mg/dl (8.5-10.1) Total Bilirubin 0.5 mg/dl (0.2-1) Aspartate Amino Transf (AST/SGOT) 14 U/L (15-37) Alanine Aminotransferase (ALT/SGPT) 22 U/L (12-78) Alkaline Phosphatase 115 U/L (45-117) Total Protein 8.5 gm/dl (6.4-8.2) Albumin 4.1 gm/dl (3.4-5.0) Globulin 4.4 gm/dl (2.5-4.0) Albumin/Globulin Ratio 0.9 (0.9-2) Human Chorionic Gonadotropin, Qual NEG (NEG) Urine Color YELLOW Urine Appearance CLEAR (CLEAR) Urine pH 7.0 (4.5-7.5) Urine Specific [place] 1.013 (1.000-1.030) Urine Protein NEG (NEG) Urine Glucose (UA) NEG (NEG) Urine Ketones NEG (NEG) Urine Occult Blood NEG (NEG) Urine Nitrite NEG (NEG) Urine Bilirubin NEG (NEG) Urine Urobilinogen NEG (NEG) Urine Leukocyte Esterase TRACE (NEG) Urine WBC (Auto) 1-5 /hpf (0-5) Urine RBC (Auto) 0-4 /hpf (0-4) Urine Hyaline Casts (Auto) 1-5 /lpf (0-5) Urine Epithelial Cells (Auto) >30 /lpf (0-5) Urine Bacteria (Auto) NEG (NEG) ED Course Patient was seen and examined Vital signs including blood pressure were reviewed medications list was verified with patient Labs were obtained, and a saline lock was established The patient declined pain medication Imaging was performed and reviewed Upon reassessment, the patient was resting comfortably. We discussed the results of her workup. She voiced understanding. I reviewed discharge instructions the patient. They voiced understanding and had no further questions. Medical Decision Differential diagnosis: Ectopic , ovarian cyst, UTI, pyelonephritis, kidney stone, diverticulitis Patient is a 31-year-old female that presents to the emergency department complaining of right lower abdominal pain radiating to her back for 1 week. Associated symptoms include urinary frequency. On exam, the patient had some tenderness in the right lower quadrant. She was nontoxic in appearance. Her workup reveals no leukocytosis. Her ultrasound was consistent with a right sided ovarian cyst. No signs of torsion. This is likely the source of her pain. There was also a small mass noted in the endometrium. The patient was informed of this, and I urged her to follow-up with her IT HELP DESK ANALYST doctor. She voiced understanding, was comfortable being discharged home. She declined pain medication. She will return to the emergency department with any new, worsening or concerning symptoms. This chart was completed in part utilizing zee[employer] Speech Voice Recognition software. Attempts were made to minimize the grammatical errors, random word insertions, pronoun errors and incomplete sentences. Any formal questions or concerns about the content, text or information contained within the body of this dictation should be directly addressed to the provider for clarification. Impression Primary Impression: Right ovarian cyst Departure Information Dispostion Home / Self-Care Condition GOOD Referrals No Doctor, Assigned (PCP) Patient Instructions ED Cyst Ovarian, [facility] Additional Instructions You have been evaluated in the emergency department for abdominal pain. This is likely due to a right-sided ovarian cyst. There was also a small mass found in the uterus. It is very important to follow up with your IT HELP DESK ANALYST doctor. Please call first thing Monday morning for a follow-up appointment. Ibuprofen 800 mg and/or Tylenol 1000 mg every 8 hours as needed for pain You may also alternate these medications for more effective pain relief: Ibuprofen --4 HRS--> Tylenol --4 HRS--> ibuprofen --4 HRS--> Tylenol .... Please do not hesitate to return to the emergency department with any new, worsening or concerning symptoms
[2017-06-23 13:40] LABS: BASO % 0.4 %; BASO ABS # 0.03 K/uL (0-0.2); EOS % 4.4 %; HEMATOCRIT 43.1 % (37-47); HEMOGLOBIN 14.5 g/dL (12.0-16.0); IG# 0.01 K/uL (0.00-0.02); LYMPH % 40.9 %; LYMPH ABS # 2.77 K/uL (1.2-3.4); MEAN CELL VOLUME 90.4 fL (80-100); MEAN CORPUSCULAR HEMOGLOBIN 30.4 pg (25-34); MEAN CORPUSCULAR HGB CONC 33.6 g/dl (32-36); MONO % 11.1 %; MONO ABS # 0.75 K/uL (0.11-0.59); NEUT % 43.1 %; NEUT ABS # 2.91 K/uL (1.4-6.5); PLATELET COUNT 245 K/uL (130-400); RED CELL DISTRIBUTION WIDTH CV 12.9 % (11.5-14.5); RED CELL DISTRIBUTION WIDTH SD 42.5 fL (36.4-46.3); WHITE BLOOD COUNT 6.77 K/uL (4.8-10.8)
[2017-06-23 13:48] LABS: ALBUMIN 4.1 gm/dl (3.4-5.0); CALCIUM 8.9 mg/dl (8.5-10.1); CREATININE 0.64 mg/dl (0.60-1.20); POTASSIUM 3.8 mmol/L (3.5-5.1)
[2017-06-23 13:51] LABS: TOTAL PROTEIN 8.5 gm/dl (6.4-8.2)
--- NOTE | 2017-06-23 15:19 | DIAGNOSTIC IMAGING REPORT ---
ULTRASOUND KIDNEYS AND BLADDER CLINICAL HISTORY: Right flank pain. COMPARISON STUDY: Renal ultrasound dated 09/14/2016. TECHNIQUE: Real-time, grayscale, and color flow sonography of the kidneys and bladder is performed. Images are reviewed in the transverse and longitudinal planes. FINDINGS: Kidneys: The kidneys are normal in size and echotexture. The right kidney measures 10.3 cm in length and the left kidney measures 10.6 cm in length. There is no hydronephrosis. No shadowing renal calculi are identified. There is no sonographic evidence of contour deforming renal mass lesion. No perinephric fluid is identified. Bladder: The bladder is partially decompressed and grossly normal in appearance. Ureteral jets were not seen. IMPRESSION: 1. The kidneys are normal in size and without hydronephrosis. 2. The bladder was partially decompressed and grossly unremarkable. Electronically signed by: Maxwell Perdomo M.D. 06/23/2017 3:17 PM Dictated Date/Time: 06/23/2017 3:16 PM
--- NOTE | 2017-06-23 15:22 | DIAGNOSTIC IMAGING REPORT ---
TRANSVAG-FEMALE PELVIS HISTORY: 31 years-old Female ? cyst RLQ pain radiating to back acute right lower quadrant abdominal pain COMPARISON: Pelvic ultrasound 09/14/2016 TECHNIQUE: Multiple real-time sonogram images of the deep pelvic structures were obtained transabdominally and transvaginally assessing grayscale appearance, color and spectral flow FINDINGS: TRANSABDOMINAL: Anteflexed uterus measures 8.3 x 4.6 x 6.0 cm. Endometrium measures 1.1 cm. Urinary bladder appears partially collapsed. There is a cystic lesion within the right ovary. Mildly complex measuring 2.7 x 2.6 x 2.0 cm. Arterial inflow to the right ovary is confirmed. TRANSVAGINAL: Hyperechoic focus with ill-defined margins seen involving the endometrium near the uterine fundus nicely seen on image 21 which measures 1.2 x 0.6 cm with possible internal flow. Endometrium measures approximately 7 mm in thickness. Mild free pelvic fluid. Right ovary measures 3.5 x 3.6 x 2.6 cm and demonstrates arterial inflow. Thick-walled cystic structure of the right ovary measures up to 2.7 x 2.0 x 2.6 cm demonstrating mild complexity with internal low-level echoes. Left ovary measures 3.4 x 2.3 x 2.4 cm and is unremarkable with arterial inflow documented. No left adnexal mass lesions. IMPRESSION: 1. Hyperechoic focus within the fundal endometrium measures up to 1.2 cm and may demonstrate minimal internal vascularity. This could be correlated with hysteroscopy to exclude endometrial mass lesion. 2. Mildly complex cystic structure of the right ovary measuring up to 2.7 cm suggests involuting hemorrhagic cyst or less likely a small endometrioma. 3. Mild free pelvic fluid, likely reactive. 4. No evidence of ovarian torsion. The above report was generated using voice recognition software. It may contain grammatical, syntax or spelling errors. Electronically signed by: Randell Lucas M.D. 06/23/2017 3:21 PM Dictated Date/Time: 06/23/2017 3:16 PM
[2017-06-23 16:19] VITALS: BP 110/62; PULSE 83; O2SAT 100
== END 2017-06-23 16:20 | disposition home or self-care (01) ==
LOC: C.EDB 12:21 → C.EDA 16:20
DX: N83.201 Unspecified ovarian cyst, right side (principal)

== ENCOUNTER 2021-01-31 03:54 | Inpatient (IN) ==
[2021-01-31] MEDS ORDERED: LACTATED RINGER'S 1,000 ML IV PRN (04:13)
[2021-01-31] MEDS ORDERED: OXYTOCIN 30 UNITS/500 ML BAG IV PRN ×2 (04:13→07:06)
--- NOTE | 2021-01-31 04:22 | History & Physical Report ---
Date of Service January 31, 2021 Assessment & Plan (1) : History of Present Illness Chief Complaint: 38 weeks in labor Primary Care Provider: Lacy Goode MD 35 F [id number] at 38 weeks admitted in labor. Allergies Allergy/AdvReac Type Severity Reaction Status Date / Time Bactrim Allergy Severe GI SYMPTOMS Verified 12/06/17 08:15 latex Allergy Mild ITCHING Verified 01/17/20 08:49 WITH CONDOMS sulfamethoxazole AdvReac Severe GI SYMPTOMS Verified 01/17/20 08:49 trimethoprim AdvReac Severe GI SYMPTOMS Verified 01/17/20 08:49 Home Medications Medication Instructions Recorded Confirmed Type Bifidobacterium infantis 10.5 mg 10.5 mg PO QAM 01/08/20 01/17/20 History (10 million cell) chewable tablet (Align) cholecalciferol (vitamin D3) 125 5,000 units PO QAM 01/08/20 01/17/20 History mcg (5,000 unit) tablet lactobacillus combination no.4 3 3,000 mmu cells PO QAM 01/08/20 01/17/20 History billion cell capsule (Probiotic) multivitamin 1 tab PO QAM 01/08/20 01/17/20 History naproxen sodium 220 mg capsule 220 mg PO BID PRN 01/08/20 01/17/20 History (Aleve) cetirizine 10 mg tablet (Zyrtec) 10 mg PO DAILY PRN 01/17/20 01/17/20 History Patient History Medical History Fatigue Headache labor with 2014 , but delivered at term Seasonal allergies Spontaneous 04/2008 UTI (urinary tract infection) TAKING ORAL ANTIBIOTICS CURRENTLY Vitamin D deficiency Surgical History History of foot surgery 12/2003 left foot fifth toe S/P foot surgery, right 2012 S/P wisdom tooth extraction Family History Mother Migraine Denies family history of Colon cancer Ovarian cancer Prostate cancer Myocardial infarction Breast cancer Social History Smoking Status: Never smoker Second Hand Exposure: No; Hx Alcohol Use: Yes Alcohol type: beer, wine and hard liquor Hx Substance Use: No Preferred Language: Urdu Communication Ability: Effective 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: No Beliefs That Will Affect Care: None marital status: Current Living Situation: Spouse and Family current occupational status: employed current occupation: [employer] Feels Safe at Home: Yes Dental Care, Regularly: Yes Physical Activity Frequency: 3-4 Times per Week Assistive Devices: Glasses OB History x4 RN EMERGENCY ROOM History uncomplicated Review of Systems All systems reviewed & are unremarkable except as noted in HPI & below Physical Exam Constitutional: WD/WN, vitals as above Eyes: PERRL, conjunctivae normal, anicteric sclerae Respiratory: normal respiratory effort, lungs clear to auscultation Cardiovascular: RRR, no murmur, no edema Skin: no rashes, warm and dry Neurologic: patellar DTR's 2+ bilat, sensation intact Psychiatric: A+Ox3, euthymic affect Genitourinary: OB Exam Abdomen: + vertex Manual OB Exam: + cervical dilation 5 cm and 6 cm, + cervical effacement 100% and + station -1 GBS is negative Results & Data ([facility]) Vital Signs (Past 12 Hours) Vital Signs Pulse BP 01/31/21 04:10 93 H 124/84 Code Status & VTE Plan VTE Prophylaxis Plan VTE Prophylaxis will be ordered: No Monitoring External Monitor Cat 1
[2021-01-31 04:42] LABS: Hematocrit (blood only) 37.7 % (37-47); Hemoglobin 12.8 g/dL (12.0-16.0); Mean Corpuscular Hemoglobin 30.7 pg (25-34); Mean Corpuscular Volume 90.4 fL (80-100); Mean Platelet Volume 10.1 fL (7.4-10.4); Platelet Count 230 K/uL (130-400); RDW Coefficient of Variation 13.6 % (11.5-14.5); RDW Standard Deviation 44.7 fL (36.4-46.3); Red Blood Count 4.17 M/uL (4.2-5.4); White Blood Count 8.89 K/uL (4.8-10.8)
--- NOTE | 2021-01-31 05:47 | Labor Progress Brief Note ---
Date of Service January 31, 2021 Assessment & Plan Admission and Anticipated Discharge Date Admission Date: January 31, 2021 Physical Exam Genitourinary: Manual OB Exam: + cervical dilation 8 cm, + cervical effacement 100%, + station 0 and + amniotic fluid clear OB Exam Monitor Tracing: + external FHT monitor used, + external uterine monitor used, + category I and + normal FHT variability AROM with Amni-hook clear fluid Results & Data ([facility]) Vital Signs (Past 12 Hours) Vital Signs Temp Pulse Resp BP 01/31/21 04:47 36.7 C 93 H 16 124/84 01/31/21 04:10 36.7 C 93 H 16 [id number]
--- NOTE | 2021-01-31 06:50 | Delivery Summary ---
Vaginal Delivery Summary Date of Service January 31, 2021 Vaginal Delivery Summary live female over intact perineum NICO with delayed cord clamping and Apgars and weight pending. Cord blood obtained followed by spontaneous delivery of intact placenta. No tears. EBL 100 ml. Final sponge and instrument count are correct. Mom and baby stable.
[2021-01-31] MEDS ORDERED: BENZOCAINE 20% AER SPR 82.5 GM CAN EXT PRN (07:06)
[2021-01-31] MEDS ORDERED: bisacodyL 10 MG SUPP PR PRN (07:06)
[2021-01-31] MEDS ORDERED: DIPHTHERIA/TETANUS/PERTUSSIS 0.5 ML SYR/VIAL IM ONE (07:06)
[2021-01-31] MEDS ORDERED: CETIRIZINE HCL 10 MG TABLET PO PRN (07:06)
[2021-01-31] MEDS ORDERED: HYDROCORTISONE ACETATE 25 MG SUPP PR PRN (07:06)
[2021-01-31] MEDS ORDERED: SUPERCREAM 0.870% 15 GM JAR EXT PRN (07:06)
[2021-01-31] MEDS ORDERED: ACETAMINOPHEN 325 MG TAB PO PRN (07:06)
[2021-01-31] MEDS: DOCUSATE SODIUM 100 MG CAP PO SCH ×2 (08:54→20:40)
[2021-01-31] MEDS: CHOLECALCIFEROL 1,000 UNITS 25 MCG TAB PO SCH (08:54)
[2021-01-31] MEDS: PRENATAL VITAMIN 1 TAB PO SCH (08:54)
[2021-01-31] MEDS: ADVANCED PROBIOTIC 1250 MG CAPSULE PO SCH (08:54)
[2021-01-31] MEDS: FERROUS SULFATE 325 MG TAB PO SCH (08:55)
[2021-01-31] MEDS ORDERED: BIFIDOBACTERIUM INFANTIS 10.5 MG PO SCH (09:00)
[2021-01-31] MEDS ORDERED: MULTIVITAMIN TAB PO SCH (09:00)
[2021-01-31] MEDS: IBUPROFEN 600 MG TAB PO PRN ×2 (12:21→20:40)
[2021-02-01] MEDS: IBUPROFEN 600 MG TAB PO PRN (04:16)
[2021-02-01 06:45] LABS: Hemoglobin 11.6 g/dL (12.0-16.0); Mean Corpuscular Hemoglobin 29.8 pg (25-34); Mean Corpuscular Hgb Conc 33.1 g/dL (32-36); Mean Platelet Volume 10.1 fL (7.4-10.4); Platelet Count 167 K/uL (130-400); RDW Coefficient of Variation 13.6 % (11.5-14.5); RDW Standard Deviation 44.6 fL (36.4-46.3); Red Blood Count 3.89 M/uL (4.2-5.4); White Blood Count 9.32 K/uL (4.8-10.8)
[2021-02-01] MEDS: DOCUSATE SODIUM 100 MG CAP PO SCH (08:17)
[2021-02-01] MEDS: PRENATAL VITAMIN 1 TAB PO SCH (08:17)
[2021-02-01] MEDS: FERROUS SULFATE 325 MG TAB PO SCH (08:17)
[2021-02-01] MEDS: CHOLECALCIFEROL 1,000 UNITS 25 MCG TAB PO SCH (08:19)
[2021-02-01] MEDS: ADVANCED PROBIOTIC 1250 MG CAPSULE PO SCH (08:21)
--- NOTE | 2021-02-01 09:02 | Obstetrical Progress Note ---
Date of Service February 01, 2021 Assessment & Plan Admission and Anticipated Discharge Date Admission Date: January 31, 2021 Subjective Patient is seen and examined. She feels well, no complaints. Desires d/c today. Ambulating without dizziness Voiding without difficulty Tolerating regular diet with out N&V Bleeding is minimal No fever/ chills/ CP/ SOB/ N&V/ Leg pain Breast feeding without problems Vital Signs Temp Pulse Resp BP Pulse Ox 02/01/21 08:05 36.5 C 65 20 108/72 98 02/01/21 04:00 36.5 C 68 16 105/70 97 02/01/21 00:35 36.6 C 84 16 104/69 96 Lab Results 01/31/21 01/31/21 01/31/21 Range/Units 04:21 04:21 04:30 WBC 8.89 (4.8-10.8) K/uL RBC 4.17 L (4.2-5.4) M/uL Hgb 12.8 (12.0-16.0) g/dL Hct 37.7 (37-47) % MCV 90.4 (80-100) fL MCH 30.7 (25-34) pg MCHC 34.0 (32-36) g/dL RDW Std Deviation 44.7 (36.4-46.3) fL RDW Coeff of Howard 13.6 (11.5-14.5) % Plt Count 230 (130-400) K/uL MPV 10.1 (7.4-10.4) fL COVID-19 Eval Order Covid19 [facility]Now [facility] SARS-CoV-2, RNA, NAAT NEGATIVE (NEGATIVE) 02/01/21 Range/Units 06:35 WBC 9.32 (4.8-10.8) K/uL RBC 3.89 L (4.2-5.4) M/uL Hgb 11.6 L (12.0-16.0) g/dL Hct 35.0 L (37-47) % MCV 90.0 (80-100) fL MCH 29.8 (25-34) pg MCHC 33.1 (32-36) g/dL RDW Std Deviation 44.6 (36.4-46.3) fL RDW Coeff of Howard 13.6 (11.5-14.5) % Plt Count 167 (130-400) K/uL MPV 10.1 (7.4-10.4) fL COVID-19 Eval Order SARS-CoV-2, RNA, NAAT (NEGATIVE) PE: General: Alert, orientedx3, NAD Abd: soft, NT, fundus firm, below Umbilicus Perineum intact, Lochia rubra minimal Ext; NT, no edema AP: 35 yo s/p , ppd# 1 VSS Afebrile doing well Continue routine care All questions were answered Discussed when to call D/C home , f/u in office Results & Data ([facility]) Vital Signs (Past 12 Hours) Vital Signs Temp Pulse Resp BP Pulse Ox 02/01/21 08:05 36.5 C 65 20 108/72 98 02/01/21 04:00 36.5 C 68 16 105/70 97 02/01/21 00:35 36.6 C 84 16 104/69 96
[2021-02-01] MEDS ORDERED: bisacodyL 5 MG TABEC PO SCH (20:00)
== END 2021-02-01 14:15 | disposition home or self-care (01) | DRG 807 ==
LOC: OPB 03:54 → 4S1 03:56 → 4S2 10:32

== ENCOUNTER 2024-05-20 18:08 | Inpatient (IN) ==
--- NOTE | 2024-05-20 19:19 | History & Physical Report ---
Date of Service May 20, 2024 Assessment & Plan (1) Ruptured membranes, prolonged: Plan: Labor induction. IV antibiotics. History of Present Illness Chief Complaint: Intrauterine 39 weeks 4 days gestation. Leakage of amniotic fluid. Primary Care Provider: Lacy Goode MD Patient is a 39-year-old 1 para 0 she is in good general health. has been well dated with a first trimester ultrasound. Her due date is 05/23/2024. Ultrasound showed an extra placental lobe. She has had over 24 hours of leakage of fluid. She was uncertain if this was amniotic fluid. She came in today and was nitrazine and AmniSure positive. She also has positive beta strep. She was placed on IV Pitocin. Given oral p.o. Cytotec. Allergies Allergy/AdvReac Type Severity Reaction Status Date / Time Bactrim Allergy Severe GI SYMPTOMS Verified 12/06/17 08:15 latex Allergy Mild ITCHING Verified 05/13/24 02:52 WITH CONDOMS whey Allergy Gastrointestinal Verified 05/13/24 02:52 Upset sulfamethoxazole AdvReac Severe GI SYMPTOMS Verified 05/13/24 02:52 trimethoprim AdvReac Severe GI SYMPTOMS Verified 05/13/24 02:52 Home Medications Medication Instructions Recorded Confirmed Type vits no.124-ferrous fum 1 tab PO DAILY 05/13/24 05/20/24 History 27 mg iron-folic acid 800 mcg tablet ( Vitamin) cetirizine 10 mg capsule (Zyrtec) 10 mg PO DAILY PRN Runny Nose 05/20/24 05/20/24 History Past Med/Surg History Problem List (Updated 05/20/24 @ 19:19 by Moo Dobbs MD) Ruptured membranes, prolonged False labor after 37 completed weeks of gestation Irregular uterine contractions Dermatitis, contact Constipation Abdominal pain Diarrhea Seasonal allergies Encounter for pre-operative examination Vitamin D deficiency Medical History (Updated 05/20/24 @ 19:19 by Moo Dobbs MD) UTI (urinary tract infection) Fatigue Headache Spontaneous 04/2008 labor with 2014 , but delivered at term Surgical History History of hysteroscopy 2019 for polyp removal S/P foot surgery, right 2012 S/P wisdom tooth extraction History of foot surgery 12/2003 left foot fifth toe Family History Mother Migraine Denies family history of Colon cancer Ovarian cancer Prostate cancer Myocardial infarction Breast cancer Social History (Updated 05/20/24 @ 18:20 by Ledy Ackerman, RN) Smoking Status: Never smoker Second Hand Exposure: No; Do You Dip or Chew Tobacco: No; Hx Alcohol Use: No Hx Substance Use: No Preferred Language: Cameroonian Communication Ability: Effective Visual Impairment: No Limitations Hearing Ability: Normal 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 Beliefs That Will Affect Care: None marital status: Current Living Situation: Spouse and Family Current Living Situation Comment: and 5 daughters current occupational status: unemployed 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 Heart had regular rhythm S1 and S2 are normal. Lungs are clear to auscultation and percussion. Trachea was midline there was no cervical adenopathy. Abdomen was consistent with a term size fetus. There was no palpable abdominal tenderness. Pelvic exam revealed the cervix to be posterior 1 cm dilated firm 80% effaced about a -1 station. Results & Data Results & Data Vital Signs (Past 12 Hours) Vital Signs Temp Pulse Resp BP 05/20/24 18:29 36.9 C 20 05/20/24 18:22 94 H 118/75 Diagnostic Findings Amnio sure positive for rupture of membranes Medications Administered Cytotec p.o. 50 mcg. Penicillin IV.
[2024-05-20] MEDS ORDERED: OXYTOCIN 30 UNITS/NSS 30 UNITS/500 ML BAG IV PRN (21:28)
[2024-05-20] MEDS ORDERED: LIDOCAINE 1% LOCAL 20 ML VIAL INFIL PRN (21:28)
[2024-05-20] MEDS: SODIUM CHLORIDE 0.9% 1,000 ML IV SCH (21:30)
[2024-05-20 21:54] LABS: Hematocrit (blood only) 35.1 % (37.0-47.0); Hemoglobin 11.8 g/dl (12.0-16.0); Mean Corpuscular Hemoglobin 28.9 pg (25.0-34.0); Mean Corpuscular Hgb Conc 33.6 g/dL (32.0-36.0); Mean Platelet Volume 10.3 fL (9.4-12.4); Platelet Count 220 K/uL (130-400); RDW Coefficient of Variation 13.2 % (11.5-14.5); RDW Standard Deviation 41.4 fL (36.4-46.3); Red Blood Count 4.08 M/uL (4.20-5.40)
[2024-05-20] MEDS ORDERED: ACETAMINOPHEN 325 MG TAB PO PRN (22:55)
[2024-05-20] MEDS: ACETAMINOPHEN 325 MG TAB ONE (23:18)
[2024-05-20] MEDS: fentANYL 2 MCG/ML BUPIVacaine 0.125%-NSS 100ML BAG ONE (23:42)
[2024-05-20] MEDS: SODIUM CHLORIDE 0.9% PF INJ 10 ML VIAL ONE (23:49)
[2024-05-20] MEDS: BUPIVACAINE 0.25% PF 30 ML VIAL ONE (23:49)
[2024-05-20] MEDS: LIDOCAINE 2%/EPINEPHRINE 1:200,000 20 ML PF ONE (23:49)
[2024-05-20] MEDS ORDERED: NALOXONE HCL 1 MG in SODIUM CHLORIDE 0.9% 1,000 ML IV PRN (23:51)
[2024-05-20] MEDS ORDERED: NALOXONE HCL 0.4 MG/1 ML VIAL/CARP IV PRN (23:51)
[2024-05-20] MEDS ORDERED: PROMETHAZINE 6.25 MG/50.25 ML BAG IV PRN (23:51)
[2024-05-20] MEDS ORDERED: fentANYL 2 MCG/ML BUPIVacaine 0.125%-NSS 100ML BAG EPI PRN (23:51)
[2024-05-20] MEDS ORDERED: ePHEDrine sulfate 50 MG/ML AMP IV PRN (23:51)
[2024-05-20] MEDS ORDERED: SODIUM CHLORIDE 0.9% PF INJ 10 ML VIAL EPI PRN (23:51)
[2024-05-20] MEDS ORDERED: NALBUPHINE HCL INJ 10 MG/ML AMP IV PRN (23:51)
[2024-05-20] MEDS ORDERED: diphenhydrAMINE 50 MG/ML VIAL IV PRN (23:51)
[2024-05-20] MEDS ORDERED: LIDOCAINE 2% MPF LOCAL 5 ML VIAL EPI PRN (23:51)
[2024-05-20] MEDS ORDERED: ROPIVACAINE 0.5% PF 5 MG/ML 20 ML VIAL EPI PRN (23:51)
[2024-05-20] MEDS ORDERED: fentaNYL citrate PF 100 MCG/2 ML VIAL EPI PRN (23:51)
[2024-05-20] MEDS ORDERED: BUPIVACAINE 0.25% PF 30 ML VIAL EPI PRN (23:51)
[2024-05-20] MEDS ORDERED: ONDANSETRON INJ 2 MG/ML 2 ML VIAL IV PRN (23:51)
--- NOTE | 2024-05-20 23:51 | Anesthesiology Consultation ---
Date of Service May 20, 2024 Assessment & Plan Chart Review Chart Review: Patient NOT seen in Pre Admission Testing and Acceptable Risk for Labor Epidural Consults Requested none ASA ASA2 Proposed Anesthesia Anesthesia Type: Labor Epidural Risk / Benefits Reviewed With: PT / POA / Parent / Guardian, Accepts Plan and Informed Consent Obtained History Height/Weight Height: 5 ft 5 in Weight: 74.389 kg Allergies Allergy/AdvReac Type Severity Reaction Status Date / Time Bactrim Allergy Severe GI SYMPTOMS Verified 12/06/17 08:15 latex Allergy Mild ITCHING Verified 05/13/24 02:52 WITH CONDOMS whey Allergy Gastrointestinal Verified 05/13/24 02:52 Upset sulfamethoxazole AdvReac Severe GI SYMPTOMS Verified 05/13/24 02:52 trimethoprim AdvReac Severe GI SYMPTOMS Verified 05/13/24 02:52 Medications Home Medications Medication Instructions Recorded Confirmed Last Taken vits no.124-ferrous fum 1 tab PO DAILY 05/13/24 05/20/24 05/19/24 08:00 27 mg iron-folic acid 800 mcg tablet ( Vitamin) cetirizine 10 mg capsule (Zyrtec) 10 mg PO DAILY PRN Runny Nose 05/20/24 05/20/24 05/18/24 08:00 Active Medications Generic Name Dose Route Start Last Admin Trade Name Freq PRN Reason Stop Dose Admin Sodium Chloride 1,000 mls @ 80 mls/hr 05/20/24 22:00 05/20/24 22:00 Nss IV 05/21/24 21:59 80 mls/hr .[id number] TAVO Infusion Past Medical History Medical History (Updated 05/20/24 @ 22:20 by Amber Lora RN) Anxiety and depression UTI (urinary tract infection) Fatigue Headache Spontaneous 04/2008 labor with 2015 , but delivered at term Exercise / Class Metabolic Activity II 4-5 Yardwork/Stairs/Walk up hill Past Family History Family History Mother Migraine Denies family history of Colon cancer Ovarian cancer Prostate cancer Myocardial infarction Breast cancer Past Surgical History Surgical History History of hysteroscopy 2019 for polyp removal S/P foot surgery, right 2012 S/P wisdom tooth extraction History of foot surgery 12/2003 left foot fifth toe Past Anesthesia History No Hx of Anesthesia Complications and No Family Hx of Anesthesia Complications History of PONV No Hx of PONV and No Hx of Motion Sickness Social History Smoking Status: Never smoker Do You Dip or Chew Tobacco: No Hx Alcohol Use: No Alcohol type: beer, wine and hard liquor alcohol intake frequency: a few times a month Hx Substance Use: No substance use type: does not use Physical Exam Vital Signs Last Vital Signs Temp 37.0 C 05/20/24 21:30 Pulse 91 H 05/20/24 23:44 Resp 18 05/20/24 21:30 BP 113/74 05/20/24 23:44 Pulse Ox 98 05/20/24 23:43 ENMT Mouth: no dentition abnormality Thyromental Distance: > or= 3.5 Finger Breadths Mallampati Class: II Neck normal visual inspection Respiratory normal respiratory effort Auscultation: lungs clear to auscultation bilaterally Cardiovascular Rate/Rhythm: regular rate and regular rhythm Psychiatric Orientation: alert Testing Laboratory Results 05/20/24 21:39
[2024-05-21] MEDS: fentaNYL citrate PF 100 MCG/2 ML VIAL ONE (00:23)
[2024-05-21] MEDS: ePHEDrine sulfate 50 MG/ML AMP ONE (00:23)
[2024-05-21] MEDS: OXYTOCIN 30 UNITS/NSS 30 UNITS/500 ML BAG IV PRN (01:05)
[2024-05-21] MEDS: BUPIVACAINE 0.25% PF 30 ML VIAL EPI STA (01:19)
[2024-05-21] MEDS: fentaNYL citrate PF 100 MCG/2 ML VIAL EPI STA (01:20)
[2024-05-21] MEDS: LIDOCAINE 2%/EPINEPHRINE 1:200,000 20 ML PF EPI STA (01:21)
[2024-05-21] MEDS: SODIUM CHLORIDE 0.9% PF INJ 10 ML VIAL EPI STA (01:21)
[2024-05-21] MEDS ORDERED: oxyCODONE/ACETAMINOPHEN 5mg/325mg TAB PO PRN (06:09)
[2024-05-21] MEDS ORDERED: HYDROCORTISONE ACETATE 25 MG SUPP PR PRN (06:09)
[2024-05-21] MEDS ORDERED: OXYTOCIN 30 UNITS/NSS 30 UNITS/500 ML BAG IV PRN (06:09)
[2024-05-21] MEDS ORDERED: ACETAMINOPHEN W/CODEINE #3 1 TAB PO PRN (06:09)
[2024-05-21] MEDS ORDERED: ACETAMINOPHEN 325 MG TAB PO PRN (06:09)
[2024-05-21] MEDS: METHYLERGONOVINE MALEATE 0.2 MG/ML AMP IM ONE (06:10)
--- NOTE | 2024-05-21 06:14 | Delivery Summary ---
Vaginal Delivery Summary Date of Service May 21, 2024 Vaginal Delivery Summary Patient's been followed in the office for care and delivery. She is presently 38 weeks 2 days gestation. She has been in several times for false labor. Patient came in she was about 4 cm having sporadic moderately painful contractions. We let her walk for a while she went to 5 cm. At this point she was declared to be in active labor. She then labored on her own for a while. Received epidural for pain control. IV Pitocin was started. At about 5 cm membranes were ruptured surgically. Fluid was clear. We then gradually up the Pitocin. She went to full dilatation. Pushed out a live male with about 4 pushes. Infant was suctioned through the mouth and the nose. Cord was allowed to pulse for 1 full minute. Cord was clamped cut by the father. Cord blood was taken. With IV Pitocin running the placenta was removed intact. First-degree laceration was then repaired anatomically. The vaginal mucosa was approximated out and to beyond the hymenal ring with a running Vicryl suture. A deep Vicryl suture was used to approximate the bulbocavernosus muscle. 2 deep sutures were approximated the perineal body. Running subcuticular suture approximated the perineal skin edges. Calculated blood loss was 100 mL. Patient tolerated the procedure well.
--- NOTE | 2024-05-21 06:28 | Anesthesia Procedure Note ---
Date of Service May 21, 2024 Anesthesia Post Epidural Note Vital Signs Vital Signs: Temp Pulse Resp BP Pulse Ox 37.0 C 79 20 125/74 99 05/21/24 04:00 05/21/24 06:25 05/21/24 05:30 05/21/24 06:25 05/21/24 05:43 Notes Mental Status: alert / awake / arousable Nausea / Vomiting: adequately controlled Pain: adequately controlled Airway Patency, RR, SpO2: stable & adequate BP & HR: stable & adequate Hydration State: stable & adequate Neuraxial Anesthesia: was administered and sensory block is resolving Anesthetic Complications: no major complications apparent and Pt Satisfied with anesthetic care Epidural: Removed without complications and With tip intact
[2024-05-21] MEDS: BENZOCAINE 20% SPRY 85 APPLN/85 GM CAN EXT PRN (06:41)
[2024-05-21] MEDS: IBUPROFEN 600 MG TAB PO PRN (06:41)
[2024-05-21] MEDS: DIPHTHER/TETAN/PERTUS Vaccine (Tdap, Adol/Adult) 0.5mL IM ONE (07:50)
[2024-05-21] MEDS: PRENATAL VITAMIN 1 TAB PO SCH (10:49)
[2024-05-21] MEDS: DOCUSATE SODIUM 100 MG CAP PO SCH (10:49)
[2024-05-22 05:14] VITALS: O2SAT 98
[2024-05-22 07:14] LABS: Hematocrit (blood only) 30.6 % (37.0-47.0); Mean Corpuscular Hemoglobin 28.5 pg (25.0-34.0); Mean Corpuscular Hgb Conc 32.7 g/dL (32.0-36.0); Mean Corpuscular Volume 87.2 fL (80.0-100.0); Mean Platelet Volume 10.3 fL (9.4-12.4); Platelet Count 170 K/uL (130-400); RDW Coefficient of Variation 13.2 % (11.5-14.5); RDW Standard Deviation 41.5 fL (36.4-46.3); Red Blood Count 3.51 M/uL (4.20-5.40); White Blood Count 8.74 K/ul (4.8-10.8)
--- NOTE | 2024-05-22 08:25 | Obstetrical Progress Note ---
Date of Service May 22, 2024 Assessment & Plan Admission and Anticipated Discharge Date Admission Date: May 20, 2024 Subjective Patient is seen and examined. She feels well, no complaints. Ambulating without dizziness Voiding without difficulty Tolerating regular diet with out N&V Bleeding is minimal No fever/ chills/ CP/ SOB/ N&V/ Leg pain Breast feeding without problems Vital Signs Temp Pulse Resp BP Pulse Ox O2 Del Method 05/22/24 04:00 36.5 C 82 16 123/77 98 Room Air 05/22/24 00:10 36.6 C 80 16 111/73 95 Room Air Lab Results 05/20/24 05/21/24 05/22/24 Range/Units 21:39 07:47 06:43 WBC 7.30 8.74 (4.8-10.8) K/ul RBC 4.08 L 3.51 L (4.20-5.40) M/uL Hgb 11.8 L 10.0 L (12.0-16.0) g/dl Hct 35.1 L 30.6 L (37.0-47.0) % MCV 86.0 87.2 (80.0-100.0) fL MCH 28.9 28.5 (25.0-34.0) pg MCHC 33.6 32.7 (32.0-36.0) g/dL RDW Std Deviation 41.4 41.5 (36.4-46.3) fL RDW Coeff of Howard 13.2 13.2 (11.5-14.5) % Plt Count 220 170 (130-400) K/uL MPV 10.3 10.3 (9.4-12.4) fL Treponema pallidum Ab Negative (Negative) Blood Type O Negative Antibody Screen NEGATIVE Screen Negative (Negative) PE: General: Alert, orientedx3, NAD Abd: soft, NT, fundus firm, below Umbilicus Perineum intact, Lochia rubra minimal Ext; NT, no edema AP: 38 yo s/p , ppd# 1 VSS Afebrile doing well Continue routine care All questions were answered Desires to be discharged today D/C home , f/u in office Results & Data Vital Signs (Past 12 Hours) Vital Signs Temp Pulse Resp BP Pulse Ox O2 Del Method 05/22/24 04:00 36.5 C 82 16 123/77 98 Room Air 05/22/24 00:10 36.6 C 80 16 111/73 95 Room Air
[2024-05-22 09:21] VITALS: BP 115/82; PULSE 71; RESP 18; TEMP 97.5
[2024-05-22] MEDS ORDERED: bisacodyL 5 MG TABEC PO SCH (20:00)
[2024-05-23] MEDS ORDERED: bisacodyL 10 MG SUPP PR PRN
== END 2024-05-22 11:15 | disposition home health service (06) | DRG 807 ==
LOC: OPB 18:08 → 4S1 18:09 → 4E2 05-21 09:20